=== PATIENT | male | born 1950 | race Caucasian/White ===

== ENCOUNTER 2016-12-16 11:11 | Inpatient (IN) | payer MEDICARE, OTHER ==
[~2016-12-16] VITALS: Ht 172.7 cm; Wt 95.6 kg
--- NOTE | ~2016-12-16 | EC ---
PATIENT:ART MONTESINOS III DATE OF SERVICE: 12/16/16 SEX: M MEDICAL RECORD: [id number] DATE OF : [birth year] LOCATION:D.M2 D.210 AGE OF PATIENT: 66 ADMISSION DATE: 12/16/16 REFERRING PHYSICIAN: INTERPRETING PHYSICIAN: LANA GANDARA MD ECHOCARDIOGRAM REPORT ECHO CHARGES 4 ECHO COMPLETE CLINICAL DIAGNOSIS: AFIB ECHOCARDIOGRAPHIC MEASUREMENTS (adult normal given) AC root (d.<3.7cm) 3.5 cm LV Septum d (<1.2 cm> 1.3 cm Valve Excursion 1.8 cm LV Septum (systole) 1.4 cm Left Atria (s.<4.0cm> 3.5 cm LVPW d(<1.2cm) 0.9 cm RV (d.<2.3cm) 3.9 cm LVPW (sytole) 1.3 cm LV diastole(<5.6CM) 4.3 cm MV E-F(>70mm/sec) cm LV systole 3.4 cm LVOT Diameter 1.5 cm MV exc.(>10mm) 2.4 cm Est.ejection fraction (50-75%) % Pericardial Effusion N DOPPLER: LVIT cm/sec A 107 cm/sec E 75.0 cm/sec LA cm/sec RVSP 24 mmHg LVOT 139 cm/sec AOP1/2T m/s Asc. Ao 203 cm/sec RVOT 101 cm/sec RA cm/sec PA 132 cm/sec AV Gradient Peak 16.42mmHg AV Mean 10.70mmHg AV Area 1.5 cm MV Gradient Peak 6.63 mmHg MV Mean 3.02 mmHg MV Area cm COMMENTS: Product Management Consultant: Óscar REID Academic Administrator: 1 Dr. Gandara TAPE# PACS DATE OF SERVICE: 12/20/2016 FINDINGS: 1. Left ventricular chamber size is within normal limits. Left ventricular systolic function is normal. Overall ejection fraction estimated at 55%. 2. Left atrium is within normal limits at 3.5 cm. Right atrium and right ventricular chamber sizes are mildly dilated. 3. Valvular structures have normal structure and motion. 4. Doppler interrogation reveals only trace tricuspid regurgitation. No other valvular insufficiency or stenosis. ECHOCARDIOGRAM REPORT [id number] ART MONTESINOS III 5. No evidence of pericardial effusion or left ventricular thrombus. TRANSINT:[id number] Voice Confirmation ID: [id number] DOCUMENT ID: [id number] LANA GANDARA MD CC: [id number] DICTATION DATE: 12/20/16 140 PROGRAM ARRANGER: 12/20/162055 DIS IN 12/20/16 [place] [id number] [place] [id number]
[~2016-12-16 11:11] MED LIST: ADIPEX-P37.5 MG PO; COREG25 MG PO; FLOMAX0.4 MG PO; KLONOPIN1 MG PO; LEVSIN/ANASP0.125 MG PO; NEXIUM40 MG PO; NORVASC10 MG PO; PERCOCET 5-3251 TAB PO; PRILOSEC20 MG PO; PRINIVIL20 MG PO; REQUIP0.5 MG PO; TIKOSYN500 MCG PO; TIROSINT50 MCG PO; ZITHROMAX250 MG PO
[2016-12-16 12:15] LABS: BASOPHILS 0.1 % (0-2); EOSINOPHILS 3.9 % (0-7); HEMOGLOBIN 12.2 g/dL (13.5-17.5); IMMATURE GRANULOCYTES 0.3 % (0-5); LYMPHOCYTES 17.1 % (15-50); MCH 28.6 pg (26.0-34.0); MCHC 32.1 g/dL (31.0-37.0); MEAN PLATELET VOLUME 11.5 fL (7.4-10.4); MONOCYTES 11.5 % (2-11); NEUTROPHILS 67.1 % (40-80); RBC 4.27 10x6/uL (4.20-6.10); RDW 17.6 % (11.5-14.5); WBC 14.7 10x3/uL (4.8-10.8)
[2016-12-16 12:33] LABS: INR 1.15 (0.85-1.17); PROTIME 14.6 SECONDS (11.6-15.0)
[2016-12-16 12:35] LABS: PLATELET COUNT 227 10x3/uL (130-400)
[2016-12-16 13:00] LABS: ALBUMIN 3.6 g/dL (3.4-5.0); ALKALINE PHOSPHATASE 80 U/L (46-116); ALT (SGPT) 9 U/L (10-68); BILIRUBIN - TOTAL 0.34 mg/dL (0.2-1.3); CALC OSMOLALITY 295 mosm/kg (275-300); CALCIUM 8.7 mg/dL (8.5-10.1); CARBON DIOXIDE 14.1 mmol/L (21.0-32.0); CHLORIDE - SERUM 91 mmol/L (98-107); CHOL - HDL RATIO 7.3 ratio (2.3-4.9); CHOLESTEROL, TOTAL 174 mg/dL (0-200); CKMB 2.2 U/L (0.0-3.6); CREATINE KINASE 92 UL (21-232); CREATININE - SERUM 17.1 mg/dL (0.6-1.3); GLUCOSE 94 mg/dL (74-106); HDL CHOLESTEROL 24 mg/dL (32-96); LDL CHOLESTEROL 104 mg/dL (0-100); LDL-HDL RATIO 4.3 ratio (1.5-3.5); PROTEIN - SERUM 8.5 g/dL (6.4-8.2); SODIUM 128 mmol/L (136-145); TRIGLYCERIDE 233 mg/dL (30-200); UREA NITROGEN 122 mg/dL (7-18); eGFR NON AFRICAN AMERICAN 3 mL/min (90-120)
[2016-12-16 13:02] LABS: TROPONIN-I < 0.017 ng/mL (0.000-0.060)
[2016-12-16 14:00] LABS: UDS - AMPHET POSITIVE QUAL (NEGATIVE); UDS - BARB NEGATIVE QUAL (NEGATIVE); UDS - BENZO NEGATIVE QUAL (NEGATIVE); UDS - COCAINE NEGATIVE QUAL (NEGATIVE); UDS - METH NEGATIVE QUAL (NEGATIVE); UDS - OPIATE POSITIVE QUAL (NEGATIVE); UDS - PCP NEGATIVE QUAL (NEGATIVE); UDS - THC NEGATIVE QUAL (NEGATIVE)
[2016-12-16 14:11] LABS: APPEARANCE CLOUDY (CLEAR); BILIRUBIN NEGATIVE (NEGATIVE); COLOR DK YELLOW (YELLOW); GLUCOSE NEGATIVE (NEGATIVE); KETONE NEGATIVE (NEGATIVE); LEUKOCYTE ESTERASE TRACE (NEGATIVE); NITRITE NEGATIVE (NEGATIVE); PROTEIN TRACE mg/dL (NEGATIVE); SPECIFIC GRAVITY 1.025 (1.005-1.020); UROBILINOGEN NORMAL (NORMAL)
[2016-12-16 14:12] LABS: AMORPHOUS SEDIMENT <1+ /lpf (NONE SEEN); BACTERIA FEW /hpf (NONE SEEN); EPITHELIAL CELLS OCC /hpf (0-5); MUCUS <1+ /lpf (NONE SEEN); RED CELLS - URINE RARE /hpf (0-5); WHITE CELLS - URINE OCC /hpf (0-5)
[2016-12-16 15:01] LABS: MAGNESIUM - SERUM 2.8 mg/dL (1.8-2.4)
[2016-12-16 15:12] LABS: PHOSPHOROUS 13.3 mg/dL (2.5-4.9)
--- NOTE | 2016-12-16 15:30 | NUR ---
PT ARRIVED TO FLOOR WITH SPOUSE AT BEDSIDE. PT ALERT AND ORIENTED BUT HAVING DIFFICULTIES REMEMBERING EVERYTHING. ORIENTED PT TO FLOOR AND ROOM AND ALL HIS STUFF. WILL CHECK CHART AND BEGIN WITH ADMISSION WORK-UP.
[2016-12-16 16:09] VITALS: BP 94/50; BMI 32.7
[2016-12-16 17:11] LABS: CREATINE KINASE 76 UL (21-232)
[2016-12-16 17:12] LABS: TROPONIN-I < 0.017 ng/mL (0.000-0.060)
--- NOTE | 2016-12-16 17:20 | NUR ---
OFFERED SCDS. PT REFUSED AND IS AMBULATORY.
[2016-12-16 18:00] LABS: COMPLEMENT C4 30.1 mg/dL (17.4-52.2)
--- NOTE | 2016-12-16 18:21 | NUR ---
PT ATTEMPTED TO HAVE BOWEL MOVEMENT AND ONLY PASSED GAS. PT SITTING UP ON EDGE OF BED WITH VISITOR AT SIDE DENIES ANY CURRENT PAIN OR NEEDS. WILL CPOC.
--- NOTE | 2016-12-16 20:06 | NUR ---
PT UP TO BATHROOM, LARGE LOOSE BM NOTIED. FAMILY MEMBERS IN ROOM SAYS PT C/O WEAKNESS. FAMILY MEMBERS ALSO DESCRIBE AN ALTERED THOUGHT PROCESS WHEN TALKING ABOUT PROBLEMS THE PT HAS. PT DENIES ANY NEEDS AT THIS TIME. NO S/S OF DISTRESS WILL CONTINUE TO MONITOR
[2016-12-16 20:19] LABS: BASOPHILS 0.1 % (0-2); EOSINOPHILS 3.4 % (0-7); HEMATOCRIT 37.4 % (42.0-54.0); HEMOGLOBIN 12.3 g/dL (13.5-17.5); IMMATURE GRANULOCYTES 0.3 % (0-5); LYMPHOCYTES 21.2 % (15-50); MCH 29.1 pg (26.0-34.0); MCHC 32.9 g/dL (31.0-37.0); MCV 88.4 fL (80.0-100.0); MEAN PLATELET VOLUME 11.3 fL (7.4-10.4); MONOCYTES 12.5 % (2-11); NEUTROPHILS 62.5 % (40-80); PLATELET COUNT 221 10x3/uL (130-400); RBC 4.23 10x6/uL (4.20-6.10); RDW 17.6 % (11.5-14.5); WBC 14.5 10x3/uL (4.8-10.8)
[2016-12-16 21:03] LABS: CKMB 2.3 U/L (0.0-3.6); CREATINE KINASE 81 UL (21-232)
[2016-12-16 21:05] LABS: TROPONIN-I < 0.017 ng/mL (0.000-0.060)
[2016-12-16 21:15] LABS: CREATININE - SERUM 16.8 mg/dL (0.6-1.3); POTASSIUM - SERUM 5.4 mmol/L (3.5-5.1)
[2016-12-16 21:16] LABS: ANION GAP 28.4 mmol/L (8-16); CALCIUM 8.1 mg/dL (8.5-10.1)
--- NOTE | 2016-12-16 21:20 | NUR ---
PT UP TO BATHROOM AND PULLED OUT IV WITH CATH INTACT. PRESSURE APPLIED. PT STAYING IN BATHROOM A WHILE TO HAVE A BM. DENIES ANY NEEDS. WILL CONTINUE TO MONITOR
[2016-12-16 21:50] VITALS: BP 101/40
--- NOTE | 2016-12-16 23:21 | NUR ---
PT STANDING IN DOOR WAY CONFUSED OF WHAT TO DO. REORIENTED PT TO ROOM AND TURNED ON TV AND SHOWED HIM HOW TO WORK THE CALL LIGHT TO CALL ME. PT IS CALM AND NOW RESTING IN BED. PT DENIES ANY QUESTIONS OR NEEDS AT THIS TIME. NO S/S OF DISTRESS. WILL CONTINUE TO MONITOR. BED LOW CALLLIGHT IN REACH. DRINK AT BEDSIDE
[2016-12-17 01:18] VITALS: BP 94/43
--- NOTE | 2016-12-17 02:31 | NUR ---
PT SITTING ON SIDE OF BED. FELLING RESTLESS AND CANT SLEEP. PT STATES" I DONT KNOW WHAT TO DO" PT HAS NO S/S OF DISTRESS / PT STILL CONFUSED
--- NOTE | 2016-12-17 02:35 | NUR ---
PT KNOWS NAME AND . PT KNOWS HE IS IN HOSPITAL AND SAYS HE IS DISORIENTED. PT CAN NOT THINK OF WORDS TO USE FOR ITEMS HE NEEDS OR THE WAY HE FEELS. PT STATES" I FEEL STUPID I CANT....I AM DISORIENTED.." CHECKING ARMS FOR RESITE OF IV
--- NOTE | 2016-12-17 03:05 | NUR ---
NEW IV IN LEFT WRIST 20G, 1 ATTEMPT.IV INFUSING FLUIDS AT ORDERED RATE. PT RESTING BUT CAN NOT SLEEP. BED LOW CALLLIGHT WITHIN REACH NO S/S OF DISTRESS WILL CONTINUE TO MONITOR
[2016-12-17 04:15] LABS: BASOPHILS 0.1 % (0-2); EOSINOPHILS 2.2 % (0-7); HEMATOCRIT 33.6 % (42.0-54.0); HEMOGLOBIN 10.9 g/dL (13.5-17.5); IMMATURE GRANULOCYTES 0.3 % (0-5); LYMPHOCYTES 15.9 % (15-50); MCH 28.5 pg (26.0-34.0); MCHC 32.4 g/dL (31.0-37.0); MEAN PLATELET VOLUME 11.3 fL (7.4-10.4); MONOCYTES 12.9 % (2-11); NEUTROPHILS 68.6 % (40-80); PLATELET COUNT 207 10x3/uL (130-400); RBC 3.82 10x6/uL (4.20-6.10); RDW 17.5 % (11.5-14.5); WBC 11.1 10x3/uL (4.8-10.8)
[2016-12-17 04:44] LABS: CALC OSMOLALITY 301 mosm/kg (275-300); CARBON DIOXIDE 17.5 mmol/L (21.0-32.0); CHLORIDE - SERUM 95 mmol/L (98-107); CKMB 1.7 U/L (0.0-3.6); CREATINE KINASE 75 UL (21-232); CREATININE - SERUM 16.1 mg/dL (0.6-1.3); GLUCOSE 103 mg/dL (74-106); POTASSIUM - SERUM 5.3 mmol/L (3.5-5.1); SODIUM 132 mmol/L (136-145); UREA NITROGEN 117 mg/dL (7-18); eGFR NON AFRICAN AMERICAN 3 mL/min (90-120)
[2016-12-17 04:46] LABS: TROPONIN-I < 0.017 ng/mL (0.000-0.060)
[2016-12-17 05:35] VITALS: BP 91/44
--- NOTE | 2016-12-17 06:24 | NUR ---
PT FINALLY SLEEPING. WAKING HIM UP TO GIVE MEDS. NO S/S OF DISTRESS. RESPIRATIONS EVEN AND UNLABORED. WILL CONTINUE TO MONITOR
--- NOTE | 2016-12-17 07:45 | NUR ---
INTRODUCED MYSELF TO PT PRIMARY RN FOR TODAYS SHIFT. PT A&O X4 BUT HAS VERY ALTERED THOUGHT PROCESS AND HAS BEEN HAVING TROUBLE GETTING ALL OF HIS ANSWERS OUT. SHIFT ASSESSMENT COMPLETED. PTS LABS ARE STILL HIGHLY ALTERED DISEASE PROCESS EXPLAINED TO PT AND TALKED WITH PT ABOUT POSSIBLE DIALYSIS. PT VERBALIZED UNDERSTANDING AND STATES HE WOULD WANT IT DONE IF NEEDED. PT HAS L.WRIST PIV INFUSING NS @150ML/HR. CL IN REACH, BED IN LOWEST, SIDE RAILS X2. WILL CPOC.
[2016-12-17 10:33] VITALS: Ht 172.7 cm; Wt 95.6 kg
--- NOTE | 2016-12-17 12:23 | NUR ---
PT C/O ACHING THROBBING MARTE AND WAS PROVIDED WITH PRN TYLENOL. CONSENTS OBTAINED AND PLACED IN CHART FOR TRIALYSIS PLACEMENT LATER TODAY WITH . PT VERBALIZED UNDERSTANDING AND HAS SPOUSE AT BEDSIDE. NO FURTHER NEEDS. WILL CTM.
[2016-12-17 13:09] VITALS: BP 92/47
[2016-12-17 13:19] VITALS: BP 96/45
--- NOTE | 2016-12-17 14:16 | NUR ---
OR CALLED TO PRE-OP PT. PRE-OP MEDS GIVEN. DENTURES REMOVED. PT LEAVING FOR PROCEDURE NOW.
[2016-12-17 15:51] VITALS: BP 108/56
--- NOTE | 2016-12-17 15:52 | NUR ---
PT BACK FROM PROCEDURE. VSS SEE FLOWSHEET PT HAS R.NECK TRIALYSIS IN PLACE WITH SWAB CAPS IN USE AND BIOPATCH IN USE. TISHAG CDI. PT C/O THROBBING MARTE REQUESTING AND PROVIDED WITH PRN TYLENOL. INTITATED IV FLUIDS VIA L.HAND PIV NS @150ML/HR ORDERED. PT VOIDED 300ML CLEAR YELLOW URINE AND SAMPLE WAS COLLECTED AND SENT TO LAB. PT RESTING AND DENIES ANY FURTHER NEEDS AT THIS TIME. SPOUSE AT BEDSIDE. CL IN REACH. WILL CPOC.
[2016-12-17 16:30] VITALS: BP 127/58
--- NOTE | 2016-12-17 19:31 | NUR ---
SPOKE WITH BRIAN IN DIALYSIS, STATES THAT SHE IS READY FOR PT TO COME DOWN.
--- NOTE | 2016-12-17 19:42 | NUR ---
GONE TO DIALYSIS BY BED.
--- NOTE | 2016-12-17 21:33 | NUR ---
BACK TO ROOM FROM DIALYSIS, PT ALERT, VITALS STABLE.
--- NOTE | 2016-12-17 21:50 | NUR ---
CONSENT SIGNED FOR CT GUIDED BX FOR IN AM, INFORMED PT OF NOTING TO EAT OR DRINK AFTER MN, PT REPEATED UNDERSTANDING.
[2016-12-18] VITALS (9 sets, daily range): BP systolic 106–173; BP diastolic 41–80
--- NOTE | 2016-12-18 03:39 | NUR ---
CABLE TOWER OPERATOR AT BED SIDE TO OBTAIN VITALS, WILL CONT TO MONITOR.
--- NOTE | 2016-12-18 04:38 | NUR ---
NOTIFIED BY MT THAT PT HAS GOEN FROM SR TO 79 A-FIB. PT ASYMPTOMATIC, RESTING WITH EYES CLOSED, NO S/S DISTRESS NOTED, WILL CONT TO MONITOR.
[2016-12-18 06:15] LABS: BASOPHILS 0.2 % (0-2); HEMATOCRIT 35.3 % (42.0-54.0); HEMOGLOBIN 11.4 g/dL (13.5-17.5); IMMATURE GRANULOCYTES 0.1 % (0-5); LYMPHOCYTES 16.2 % (15-50); MCH 28.4 pg (26.0-34.0); MCHC 32.3 g/dL (31.0-37.0); MEAN PLATELET VOLUME 11.3 fL (7.4-10.4); MONOCYTES 13.8 % (2-11); NEUTROPHILS 65.7 % (40-80); PLATELET COUNT 217 10x3/uL (130-400); RBC 4.01 10x6/uL (4.20-6.10); RDW 17.3 % (11.5-14.5)
[2016-12-18 06:41] LABS: WBC 8.1 10x3/uL (4.8-10.8)
[2016-12-18 06:57] LABS: ANION GAP 22.7 mmol/L (8-16); CALCIUM 8.6 mg/dL (8.5-10.1); CARBON DIOXIDE 17.3 mmol/L (21.0-32.0); MAGNESIUM - SERUM 2.2 mg/dL (1.8-2.4)
[2016-12-18 06:59] LABS: PHOSPHOROUS 6.8 mg/dL (2.5-4.9)
--- NOTE | 2016-12-18 10:36 | NUR ---
PT CALLED C/O THROBBING MARTE. REQUESTED AND PROVIDED WITH PRN TYLENOL. PT NPO FOR CT RENAL BIOPSY AND INQUIRING ABOUT TIME, WILL CALL AND FIND OUT INFORMATION FOR PT. CHANGED PTS R.NECK TRIALYSIS DRSG USING STERILE TECHNIQUE. DRSG CDI WITH BIOPATCH IN PLACE, DATED AND INITIALED AND SWAB CAPS IN USE. RESTARTED PTS IV FLUIDS ORDERED R/T HIM BEING DISCONNECTED BUT HE DOESNT REMEMBER WHY. TUBING CHANGED OUT PER POLICY AND DATED. EMPTIED URINAL OF 200ML CLEAR YELLOW URINE. CL IN REACH, BED IN LOWEST, SIDE RAILS X2. NO FURTHER NEEDS NOTED AT THIS TIME. WILL CPOC.
[2016-12-18 12:16] LABS: ANA REFLEX - DBL STRANDED DNA <1 IU/mL (0-9); ANA REFLEX - DIRECT Negative (Negative)
--- NOTE | 2016-12-18 13:42 | NUR ---
PT BACK FROM PROCEDURE. BIOPSY TAKEN AND DRSG TO R.FLANK CDI, NO S/S OF BLEEDING NOTED. VSS AND BEING MONITERED AND DOCUMENTED PER POLICY. INITIATED IV FLUIDS ORDERED. PT DENIES ANY CURRENT PAIN OR FURTHER NEEDS AT THIS TIME. CL IN REACH, BED IN LOWEST, SIDE RAILS X2. WILL CPOC.
[2016-12-18] MEDS ORDERED: LASIX40 MG PO (14:16)
--- NOTE | 2016-12-18 15:00 | NUR ---
PTS R.FLANK DRSG STILL CDI NO S/S OF BLEEDING OR HEMATOMA NOTED. VSS AND STILL BEING MONITERED. PT DENIES ANY CURRENT NEEDS. WILL CPOC.
--- NOTE | 2016-12-18 15:33 | NUR ---
PT C/O SLIGHT NAUSEA AND WAS PROVIDED WITH PRN ZOFRAN. PT READY FOR DIALYSIS AND WILL BE TRANSFERRED DOWN. NO FURTHER NEEDS AT THIS TIME. WILL CPOC.
--- NOTE | 2016-12-18 16:00 | NUR ---
PT GONE TO DIALYSIS.
--- NOTE | 2016-12-18 19:15 | NUR ---
CURRENTLY IN DIALYSIS.
--- NOTE | 2016-12-18 19:16 | NUR ---
PT C/O MARTE DOWN IN DIALYSIS. PROVIDED PT WITH PRN FIORICET. PT HAS ABOUT 20 MINS LEFT OF DIALYSIS AND THEN WILL BE PICKED UP. NO FURTHER NEEDS AT THIS TIME. WILL REPORT TO NIGHTSHIFT NURSE.
--- NOTE | 2016-12-18 19:45 | NUR ---
BACK TO ROOM FROM DIALYSIS, PT A&O. VITALS STABLE. WILL CONT TO MONITOR.
--- NOTE | 2016-12-19 01:32 | NUR ---
CALL LIGHT IN REACH, WILL CONTINUE WITH PLAN OF CARE.
--- NOTE | 2016-12-19 03:33 | NUR ---
FIORICET 1 TAB GIVEN AT PT REQUEST FOR C/O HEADACHE.
[2016-12-19 06:03] LABS: BASOPHILS 0.2 % (0-2); EOSINOPHILS 2.8 % (0-7); HEMATOCRIT 35.4 % (42.0-54.0); HEMOGLOBIN 11.6 g/dL (13.5-17.5); IMMATURE GRANULOCYTES 0.2 % (0-5); LYMPHOCYTES 17.2 % (15-50); MCH 28.7 pg (26.0-34.0); MCHC 32.8 g/dL (31.0-37.0); MCV 87.6 fL (80.0-100.0); MEAN PLATELET VOLUME 11.1 fL (7.4-10.4); MONOCYTES 13.1 % (2-11); NEUTROPHILS 66.5 % (40-80); PLATELET COUNT 244 10x3/uL (130-400); RBC 4.04 10x6/uL (4.20-6.10); RDW 16.7 % (11.5-14.5); WBC 8.7 10x3/uL (4.8-10.8)
[2016-12-19 06:24] VITALS: BP 134/72
[2016-12-19 06:24] LABS: ANION GAP 16.3 mmol/L (8-16); CALCIUM 8.8 mg/dL (8.5-10.1); POTASSIUM - SERUM 3.6 mmol/L (3.5-5.1)
[2016-12-19 06:30] LABS: CARBON DIOXIDE 28.3 mmol/L (21.0-32.0); CREATININE - SERUM 1.9 mg/dL (0.6-1.3)
--- NOTE | 2016-12-19 07:52 | NUR ---
PT RESTING IN BED. PT RT FLANK DRESSING CDI. LT WRIST IV IS SL. PT DENIES NEEDS. WCTM.
[2016-12-19 08:42] VITALS: BP 163/73
--- NOTE | 2016-12-19 10:28 | NUR ---
PER ALEJANDRO [place] APN. PT LABS LOOK REMARKABLY WELL FROM YESTERDAYS STANDPOINT. HOLDING DIALYSIS TODAY.
[2016-12-19 11:19] LABS: HEPATITIS C ANTIBODY <0.1 (0.0-0.9)
[2016-12-19 11:57] VITALS: BP 130/70
[2016-12-19 16:06] VITALS: BP 98/60
--- NOTE | 2016-12-19 17:00 | OP ---
PATIENT NAME: ART MONTESINOS III MEDICAL RECORD: [id number] :46 LOCATION:D.M2 D.2100 ADMISSION DATE:12/16/16 SURGEON: ANGY MONTESINOS MD OPERATION DATE: 12/17/16 SURGEON: Angy Montesinos MD REFERRING PHYSICIAN: Louie Zepeda DO and Trenton Reyes MD PREOPERATIVE DIAGNOSIS: Acute renal failure. POSTOPERATIVE DIAGNOSIS: Acute renal failure. OPERATION PERFORMED: Ultrasound guided access and insertion of a right internal jugular Trialysis non-tunneled acute dialysis catheter. ANESTHESIA: Local with monitoring pre MACHINE HEEL SPRAYER. PREOPERATIVE NOTE: The patient is a 66-year-old white male patient who suffered acute renal failure, uncertain etiology though most likely he has had dehydration on top of preexisting hypertensive renal disease. At any rate, he needs dialysis, and I was asked to see him and place a catheter today. PROCEDURE: Under nothing but local anesthesia with MACHINE HEEL SPRAYER monitoring, the patient was placed in supine position on the operating table and prepped and draped in a sterile manner. I visualized the right internal jugular vein with ultrasound and found it to be large and compressible without any evidence of thrombosis or other abnormality. Skin and subcutaneous tissues at the base of the neck on the right were anesthetized with 1% lidocaine plain and a small incision made there. Through that incision under ultrasound guidance, micropuncture needle and guidewire were inserted. Fluoroscopy confirmed appropriate position. A catheter and then a larger guidewire were inserted and then serial dilators passed under fluoroscopy. Last, a 20 centimeter Trialysis catheter was inserted. All three lumens were aspirated and returned blood easily. They were then flushed with saline and heplock solution, clamped, and capped. The catheter was sutured to the skin near the entry site with 2-0 silk and a sterile dressing applied. The patient was awakened and taken to the recovery room. He will have a chest x-ray, but he can have dialysis at any time. ANGY MONTESINOS MD at 1700 CC: VIKI ADAMS MD [id number] DICTATION DATE: 12/18/162242 HOSIERY PAIRER: FARHAT 12/18/162242 ADM IN [facility] [address] [place] [id number]
--- NOTE | 2016-12-19 19:17 | NUR ---
ALERT/AWAKE WATCHING TV. ASSESSMENTS COMPLETED. DENIES PAIN OR ANY NEEDS. HAS CALL LIGHT IN REACH.
[2016-12-19 19:25] LABS: CKMB 1.2 U/L (0.0-3.6); CREATINE KINASE 61 UL (21-232); MAGNESIUM - SERUM 1.9 mg/dL (1.8-2.4)
[2016-12-19 20:00] VITALS: BP 142/83
--- NOTE | 2016-12-20 00:07 | NUR ---
RETURNING TO BED FROM BATHROOM. STATED HE HAD A BM. DENIES ANY NEEDS.
[2016-12-20 04:00] VITALS: BP 139/71
[2016-12-20 04:45] LABS: BASOPHILS 0.2 % (0-2); EOSINOPHILS 5.6 % (0-7); HEMATOCRIT 36.9 % (42.0-54.0); HEMOGLOBIN 12.3 g/dL (13.5-17.5); IMMATURE GRANULOCYTES 0.1 % (0-5); LYMPHOCYTES 23.1 % (15-50); MCH 28.9 pg (26.0-34.0); MCHC 33.3 g/dL (31.0-37.0); MCV 86.6 fL (80.0-100.0); MEAN PLATELET VOLUME 10.7 fL (7.4-10.4); MONOCYTES 12.4 % (2-11); NEUTROPHILS 58.6 % (40-80); PLATELET COUNT 226 10x3/uL (130-400); RBC 4.26 10x6/uL (4.20-6.10); RDW 16.1 % (11.5-14.5); WBC 8.8 10x3/uL (4.8-10.8)
[2016-12-20 05:12] LABS: CALC OSMOLALITY 285 mosm/kg (275-300); CALCIUM 8.7 mg/dL (8.5-10.1); CARBON DIOXIDE 28.4 mmol/L (21.0-32.0); CHLORIDE - SERUM 103 mmol/L (98-107); CKMB 1.1 U/L (0.0-3.6); CREATINE KINASE 64 UL (21-232); GLUCOSE 110 mg/dL (74-106); MAGNESIUM - SERUM 1.7 mg/dL (1.8-2.4); POTASSIUM - SERUM 3.3 mmol/L (3.5-5.1); SODIUM 141 mmol/L (136-145); UREA NITROGEN 23 mg/dL (7-18); eGFR NON AFRICAN AMERICAN 53 mL/min (90-120)
[2016-12-20 05:13] LABS: CREATININE - SERUM 1.4 mg/dL (0.6-1.3)
--- NOTE | 2016-12-20 05:30 | NUR ---
SITTING ON SIDE OF BED. ADMIN SCHED PO MED. STATED HAVING A HARD TIME SLEEPING. REQUESTED DOOR CLOSED.
[2016-12-20 07:47] VITALS: BP 114/62
[2016-12-20 08:20] LABS: SPE - A/G RATIO 0.8 (0.7-1.7); SPE - ALBUMIN 3.1 g/dL (2.9-4.4); SPE - ALPHA-1 GLOBULIN 0.3 g/dL (0.0-0.4); SPE - BETA GLOBULIN 1.1 g/dL (0.7-1.3); SPE - GAMMA GLOBULIN 1.4 g/dL (0.4-1.8); SPE - M-SPIKE Not Observed g/dL (Not Observed)
--- NOTE | 2016-12-20 08:24 | NUR ---
PT RESTING IN BED WITH EYES OPEN CALL LIGHT IN REACH WILL MONITER
[2016-12-20 12:14] VITALS: BP 162/72
--- NOTE | 2016-12-20 12:30 | NUR ---
Nutrition follow-up: Diet: Renal PO intake ~60% average of last 7 meals labs reviewed Wt: 211# RDN following.
--- NOTE | 2016-12-20 12:51 | NUR ---
PT IN DIALYSIS
[2016-12-20] MEDS ORDERED: ELIQUIS5 MG PO ×3 (14:08→16:04)
--- NOTE | 2016-12-20 15:26 | NUR ---
ORDER FOR TRIALYSIS REMOVAL RECEIVED. HEAD TURNED TO L SIDE. . DRESSING REMOVED. SITE CLEANED WITH BETADINE. SUTURES REMOVED X2. CATH REMOVED WITH TIP INTACT. NO SIGNS OF INFECTION. PRESSURE HELD FOR 5 MINS. THEN PRESSURE DRESSING APPLIED. PT COREY WELL. HOB ELEVATED 45 DEGREES. NO SIGNS OF DIZZINESS NOTED. PT INSTRUCTED ABOUT SIGNS OF BLEEDING AND INFECTION.
--- NOTE | 2016-12-20 15:51 | NUR ---
$10.00 COPAY CARD GIVEN TO THE PATIENT FOR ELIQUIS PER MD REQUEST. PATIENT DENIES QUESTIONS ABOUT THE CARD.
--- NOTE | 2016-12-20 15:52 | NUR ---
Patient Name: ART MONTESINOS Admission Status: ER Accout number: [id number] Admission Date: 12-16-2016 : 1950 Admission Diagnosis:ACUTE KIDNEY FAILURE, UNSPECIFIED Attending: BONNIE Current LOS: 4 Anticipated DC Date: 12-20-2016 Planned Disposition: Home Primary Insurance: MEDICARE A & B Discharge Planning Comments: CM MET WITH PATIENT TO DISCUSS DISCHARGE PLANNING NEEDS. PATIENT STATED THAT HE IS GOING TO RETURN HOME WITH HIS GIRLFRIEND RUTH (WHO ENTERED THE ROOM WE WERE TALKING). SHE IS TO BE HIS TRANSPORTATION. HE DENIES THE NEED FOR ANY MEDICAL EQUIPMENT, HE STATED HE HAS A CANE, WALKER, AND BSC. HE DENIES AND COMMUNITY RESOURCE NEEDS AT THIS TIME. HAVE MADE MYSELF AVAILABLE IF THE PATIENT WAS TO CHANGE HIS MIND BEFORE HE IS DISCHARGED. Mogul Operator: India Mosley Is the patient Alert and Oriented? Yes * How many steps to enter\exit or inside your home? 2, NO RAIL * PCP DR AVALOS * Pharmacy [facility] [place] * Preadmission Environment Home Alone * ADLs Independent * Equipment Bedside Commode Cane Walker * List name and contact numbers for known caregivers / representatives who currently or will assist patient after discharge: MARICARMEN ALCARAZ, * Additional services required to return to the preadmission environment? No * Can the patient safely return to the preadmission environment? Yes * Has this patient been hospitalized within the prior 30 days at any hospital? No
--- NOTE | 2016-12-20 16:50 | NUR ---
PT DISCHARGED TO HOME MEDS AND DISCHARGE SUMMARY REVIEWED NO QUESTION PT LEFT IN WHEELCHAIR TOLERATED WELL
[2016-12-20 17:09] VITALS: BP 148/84
[2016-12-23 09:09] LABS: UPE RAND - ALBUMIN 16.7 % (()); UPE RAND - ALPHA 1 GLOBULIN 11.8 % (()); UPE RAND - ALPHA 2 GLOBULIN 20.2 % (()); UPE RAND - BETA GLOBULIN 18.5 % (()); UPE RAND - GAMMA GLOBULIN 32.7 % (())
== END 2016-12-20 17:45 | disposition home or self-care (01) | DRG 682 ==
LOC: D.ER 11:11 → D.M2 14:06
PROVIDERS: Emergency Medicine; Surgery; ADMIT Family Medicine
PROC: B5131ZA Fluoroscopy of Right Jugular Veins using Low Osmolar Contrast, Guidance (ICD-10-PCS; 2016-12-17)
PROC: B543ZZA Ultrasonography of Right Jugular Veins, Guidance (ICD-10-PCS; 2016-12-17)
PROC: 05HM33Z Insertion of Infusion Device into Right Internal Jugular Vein, Percutaneous Approach (ICD-10-PCS; principal; 2016-12-17 14:00)
PROC: 0TB03ZX Excision of Right Kidney, Percutaneous Approach, Diagnostic (ICD-10-PCS; 2016-12-18)
DX: N17.2 Acute kidney failure with medullary necrosis (principal); G93.41 Metabolic encephalopathy; E87.2 Acidosis; E87.1 Hypo-osmolality and hyponatremia; E87.5 Hyperkalemia; F15.90 Other stimulant use, unspecified, uncomplicated; I10 Essential (primary) hypertension; F41.9 Anxiety disorder, unspecified; G47.33 Obstructive sleep apnea (adult) (pediatric); E03.9 Hypothyroidism, unspecified; E86.0 Dehydration; I95.9 Hypotension, unspecified; I48.2 Chronic atrial fibrillation